=== PATIENT | female | born 1995 | race Caucasian/White ===

== ENCOUNTER 2017-02-12 00:35 | Emergency (ER) | payer OTHER ==
[~2017-02-12] VITALS: Ht 172.7 cm; Wt 56.0 kg
[2017-02-12 00:37] VITALS: BP 146/96; PULSE 112; RESP 18; TEMP 98.3; O2SAT 100
--- NOTE | 2017-02-12 01:39 | PD ---
HPI Chief Complaint: Medical Clearance Time Seen by Provider: 01:09 Travel History International Travel<30 days: No Contact w/Intl Traveler<30days: No Traveled to known affect area: No History of Present Illness HPI Patient comes in complaining left nipple changes that she first noticed yesterday. Patient reports she first noticed her left nipple was swollen yesterday. Patient states she took antihistamines seemed to help her symptoms. Patient states that tonight she noticed it seem be swollen slightly cracked. She denies any discharge with this. Patient is concerned as her mother had breast cancer and she is afraid she may have cancer. History Past Medical Histgory LMP: 3 WKS AGO Social History Alcohol Use: No Tobacco Use: Yes Allergies-Medications (Allergen,Severity, Reaction): Coded Allergies: No Known Allergies (Unverified , 02/12/17) Reported Meds & Prescriptions Reported Meds & Active Scripts Active No Active Prescriptions or Reported Medications Review of Systems Except as stated in HPI: all other systems reviewed are Neg Physical Exam Narrative GENERAL: Well-developed, well nourished, in no acute distress, and non-ill appearing. SKIN: Warm and dry. HEAD: Atraumatic. Normocephalic. EYES: Pupils equal and round. EOMI. No scleral icterus. No injection or drainage. ENT: No nasal bleeding or discharge. Mucous membranes pink and moist. NECK: Trachea midline. Supple. No nuclear rigidity. RESPIRATORY: No accessory muscle use. No respiratory distress. BREAST: Breast are asymmetrical the right being slightly larger than the left. Areola are differentiate which patient reports is chronic. Left nipple appears slightly larger than the right. There is no mass, tenderness, erythematous, crepitus, or discharge appreciated. Exam was performed with presence of staff radiographerCOREY Solomon at all times. MUSCULOSKELETAL: No obvious deformities. No clubbing. No cyanosis. No edema. Full range of motion. NEUROLOGICAL: Awake and alert. No obvious cranial nerve deficits. Motor grossly within normal limits. Normal speech. PSYCHIATRIC: Appropriate mood and affect; insight and judgment normal. Data Data Last Documented VS Vital Signs Date Time Temp Pulse Resp B/P Pulse Ox O2 Delivery O2 Flow Rate FiO2 02/12/17 00:37 98.3 112 18 146/96 100 Room Air MDM Medical Screen Exam Complete: Yes Emergency Medical Condition: No Narrative Course History and physical exam findings are not consistent with an emergent medical condition. She was given the option of receiving additional care, but has declined. Therefore the appropriate counseling recommendations were discussed with the patient and she was instructed to follow-up with her primary care physician as soon as possible for reevaluation. Patient was also informed of community resources from which she can obtain additional care. She is agreeable and verbalizes an understanding of the proposed plan. The patient states she will immediately return to the emergency department if her current complaints do not improve, new symptoms arise, or emergent condition develops. Patient ambulated out of the emergency department without difficulty. Primary Impression: Encounter for medical screening examination Scripts No Active Prescriptions or Reported Meds Disposition: EDGO-ED USE ONLY Condition: Stable Gilberto Jorgensen Feb 12, 2017 01:39
== END 2017-02-12 01:40 | disposition left against medical advice (07) ==
LOC: NEPB 00:35
DX: R23.8 Other skin changes (principal); Z72.0 Tobacco use
CPT/HCPCS: 99281